=== PATIENT | male | born 1960 | race African-American/Black ===

== ENCOUNTER 2018-12-30 16:34 | Emergency (ER) | payer MEDICAID ==
--- NOTE | 2018-12-30 17:24 | EDPHY ---
General Time Seen by Provider: 12/30/18 17:01 Narrative: CLINICAL IMPRESSION: Multiple superficial skin wounds ASSESSMENT/PLAN: 58-year-old homeless male presents to the emergency department with his spouse who is diabetic, for concerns of multiple superficial skin wounds on the arms, face, back of the neck, and legs. Patient reports he has had these for many weeks. They are relatively new to the [facility], not established with primary care or mental health and both abuse illicit drugs. On exam, patient has multiple superficial abrasions with no evidence of underlying infection, cellulitis, deep space abscess, necrotizing fasciitis or osteomyelitis. Vital signs stable. No reported fever or chills. Patient was given a prescription for antibiotics as well as permethrin given a possible exposure to lice versus bed bugs. He was referred to primary care and mental health and advised to make follow-up appointments. Warning signs return to ED sooner alignment discharge. DIFFERENTIAL DX: Differential includes but not limited to multiple superficial abrasions, cellulitis, acute psychosis, illicit drug abuse, intoxication CHIEF COMPLAINT: Skin wounds, chronic bowel problems HPI: 58-year-old homeless male presents to the emergency department with his spouse who is also homeless for concerns of superficial wounds to his arms legs neck and face for many months. Patient reports he thinks he has parasites or ticks in his skin. He 1st noticed these when he was in [place]. He used to be from the [facility], has been away for many years and he and his spouse recently relocated here. They are both homeless however staying in friend's homes currently. They have children but do not have access to them. No reported history of MRSA. Patient denies IV drug abuse but does abuse marijuana, heroin and methamphetamine. He also reports mental health history. He also reports having chronic issues with his bowels. His girlfriend reports he had a normal colonoscopy in [place] and that everything was normal but he is concerned about his prostate. He denies dysuria , urgency, visible hematuria, flank pain, fever, chills, and believes his symptoms are because he "does not drink water". PAST MEDICAL HISTORY: Mental health history, drug abuse See triage summary and nurse notes for addition applicable history Pertinent Past Surgical History: None reported Family History: Noncontributory Social History: Lives on the streets, here with his insulin-dependent diabetic spouse who is also on the streets, complicated social situation, does not currently have access to his children, abuses illicit drugs REVIEW OF SYSTEMS: A full 10 point review of systems was negative except for those mentioned in HPI. PHYSICAL EXAM: General Appearance: Alert, oriented, appropriate, cooperative, NAD, well hydrated, non-toxic appearing, VSS, no hypoxia. HEENT: [TMs are clear bilaterally no perforation or FB, no injection, no evidence of serous or mucopurulent otitis. No intraoral lesions Oropharynx clear is no erythema or exudates, no tonsillar hypertrophy or asymmetry. Dentition without abnormality. Superficial scabbed sores on the bridge of the nose, cheeks, neck with no signs of secondary infection, fluctuance or induration Neck: Supple, nontender, no lymphadenopathy, no midline pain, FROM, no meningismus. Respiratory: There are no retractions, lungs are clear to auscultation. Cardiac: Regular rate and rhythm, no murmurs or gallops. Gastrointestinal: Abdomen is soft, nontender, bowel sounds normal, no masses/ hernia, no rigidity, guarding or focal peritoneal findings. Rectal exam deferred Skin: Multiple superficial abrasions to arms, back of neck and scalp, no secondary signs of infection. No foreign body MEDICAL DECISION MAKING: Patient was seen independently. Secondary supervising physician at time of evaluation was: Dr. Lay . Diagnosis: Multiple abrasions, possible bedbugs versus pediculosis . New, requires workup Summary: See Assessment and Plan for summary of ED visit Patient Progress: Stable for discharge. - History Smoking Status: Current every day smoker - Objective Vital Signs: Initial Vital Signs Temperature (C) 36.4 C 12/30/18 16:41 O2 Delivery Mode Room Air Allergies/Adverse Reactions: No Known Allergies Allergy (Unverified 01/03/10 05:27) Home Medications: Medication Instructions Recorded Permethrin 5% [Elimite 5%] 60 gm TP DAILY #1 cream 12/30/18 Permethrin [Nix] 60 ml TP DAILY #1 liquid 12/30/18 Sulfamethox/Tmp 800/160 mg 1 tab PO BID #14 tab 12/30/18 [Bactrim Ds] Departure - Departure Disposition: Home, Routine, Self-Care Clinical Impression: Multiple wounds of skin Condition: Good Instructions: Acute Wounds (ED) Additional Instructions: DISCHARGE INSTRUCTIONS FROM YOUR DOCTOR Thank you for visiting our emergency department today. You were treated by a physician pest controller assistant today and your case was reviewed with our ED Attending physician. Please keep in mind that discharge from the emergency department does not mean that there is nothing wrong - it simply means that we have not identified an emergency condition that requires further evaluation or treatment in the hospital. You should always plan to follow up with primary care for re- evaluation of your condition in the next 2-3 days. If you have been referred to a specialist, please call as soon as possible (today or tomorrow) to schedule your follow up appointment at the appropriate time. WE GAVE YOU PRESCRIPTION FOR ANTIBIOTICS WELL CREAMS FOR SCABIES VERSUS LICE. IT IS VERY IMPORTANT THAT YOU ESTABLISHED CARE WITH A PRIMARY CARE PROVIDER. A REFERRAL WAS GIVEN TODAY. PLEASE CALL THEM FOR AN APPOINTMENT. THEY CAN ALSO ADDRESS ANY MEDICATION REFILLS YOU MAY NEED OR GI FOLLOW-UP FOR CHRONIC BOWEL PROBLEMS. I ALSO PROVIDED REFERRALS FOR MENTAL HEALTH. PLEASE TAKE ANTIBIOTICS DIRECTED. RETURN TO THE EMERGENCY DEPARTMENT FOR INCREASED SKIN PAIN, SWELLING, REDNESS, DISCHARGE, FEVER OR ANY OTHER CONCERN. People present with illnesses and injuries in different ways, and it is always possible that we have missed something. You may always return for re-evaluation if symptoms worsen or if they are not improving or if you develop new/different symptoms. Again, thank you for choosing our emergency department. We hope that you feel better. Referrals: NONE *PRIMARY CARE P,. [Primary Care Provider] - As per Instructions [facility],. [Clinic] - 1-2 days without fail [facility],. [Clinic] - 1-2 days without fail Prescriptions: Permethrin [Nix] 60 ml TP DAILY #1 liquid Permethrin 5% [Elimite 5%] 60 gm TP DAILY #1 cream Sulfamethox/Tmp 800/160 mg [Bactrim Ds] 1 tab PO BID #14 tab
== END 2018-12-30 17:37 | disposition home or self-care (01) ==
DX: R21 Rash and other nonspecific skin eruption (principal); Z59.0 Homelessness